=== PATIENT | female | born 1965 | race Caucasian/White ===

== ENCOUNTER 2018-07-22 16:10 | Emergency (ER) | payer BC, OTHER ==
[2018-07-22] MEDS ORDERED: IBUPROFEN 200 MG TAB PO ONE (16:51)
--- NOTE | 2018-07-22 17:20 | EDPHYS ---
Physician Documentation [facility] Name: Kathryn Campuzano Age: 53 yrs Sex: Female : 1965 Arrival Date: 07/22/2018 Time: 16:17 Bed 12 Private MD: ED Physician Los Lobo HPI: 07/22 16:56 This 53 yrs old Female presents to ER via Ambulatory with complaints of Flu viky Symptoms. 16:56 cough. The patient or guardian reports cough. Severity of symptoms: At their worst the viky symptoms were mild, in the emergency department the symptoms are unchanged. Onset: The symptoms/episode began/occurred 3 day(s) ago. Associated signs and symptoms: The patient has no apparent associated signs or symptoms. Severity of symptoms: At their worst the symptoms were mild in the emergency department the symptoms are unchanged. 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 - Social history:: Smoking status: Patient/guardian denies using tobacco. - Ebola Screening: : Patient negative for fever greater than or equal to 101.5 degrees Fahrenheit, and additional compatible Ebola Virus Disease symptoms Patient denies exposure to infectious person Patient denies travel to an Ebola-affected area in the 21 days before illness onset No symptoms or risks identified at this time. - Family history:: not pertinent. ROS: 16:56 Constitutional: Negative for fever, chills, and weight loss, Eyes: Negative for injury, viky pain, redness, and discharge, ENT: Negative for injury, pain, and discharge, Neck: Negative for injury, pain, and swelling, Cardiovascular: Negative for chest pain, palpitations, and edema, Abdomen/GI: Negative for abdominal pain, nausea, vomiting, diarrhea, and constipation, Back: Negative for injury and pain, : Negative for injury, bleeding, discharge, and swelling, MS/Extremity: Negative for injury and deformity, Skin: Negative for injury, rash, and discoloration, Psych: Negative for depression, anxiety, suicide ideation, homicidal ideation, and hallucinations, Allergy/Immunology: Negative for hives, rash, and allergies, Endocrine: Negative for neck swelling, polydipsia, polyuria, polyphagia, and marked weight changes, Hematologic/Lymphatic: Negative for swollen nodes, abnormal bleeding, and unusual bruising. 16:56 Respiratory: Positive for cough. 16:56 Neuro: Positive for headache. Exam: 16:56 Constitutional: This is a well developed, well nourished patient who is awake, alert, viky and in no acute distress. Head/Face: Normocephalic, atraumatic. Eyes: Pupils equal round and reactive to light, extra-ocular motions intact. Lids and lashes normal. Conjunctiva and sclera are non-icteric and not injected. Cornea within normal limits. Periorbital areas with no swelling, redness, or edema. ENT: Nares patent. No nasal discharge, no septal abnormalities noted. Tympanic membranes are normal and external auditory canals are clear. Oropharynx with no redness, swelling, or masses, exudates, or evidence of obstruction, uvula midline. Mucous membranes moist. Neck: Trachea midline, no thyromegaly or masses palpated, and no cervical lymphadenopathy. Supple, full range of motion without nuchal rigidity, or vertebral point tenderness. No Meningismus. Chest/axilla: Normal chest wall appearance and motion. Nontender with no deformity. No lesions are appreciated. Cardiovascular: Regular rate and rhythm with a normal S1 and S2. No gallops, murmurs, or rubs. Normal PMI, no JVD. No pulse deficits. Respiratory: Lungs have equal breath sounds bilaterally, clear to auscultation and percussion. No rales, rhonchi or wheezes noted. No increased work of breathing, no retractions or nasal flaring. Abdomen/GI: Soft, non-tender, with normal bowel sounds. No distension or tympany. No guarding or rebound. No evidence of tenderness throughout. Back: No spinal tenderness. No costovertebral tenderness. Full range of motion. Skin: Warm, dry with normal turgor. Normal color with no rashes, no lesions, and no evidence of cellulitis. MS/ Extremity: Pulses equal, no cyanosis. Neurovascular intact. Full, normal range of motion. Neuro: Awake and alert, GCS 15, oriented to person, place, time, and situation. Cranial nerves II-XII grossly intact. Motor strength 5/5 in all extremities. Sensory grossly intact. Cerebellar exam normal. Normal gait. Psych: Awake, alert, with orientation to person, place and time. Behavior, mood, and affect are within normal limits. 16:56 Neck: ROM/movement: is normal, no acute changes, Meningeal signs: are not present, Kernig's sign is negative, Brudzinski's sign is negative. Vital Signs: 16:30 BP 145 / 90; Pulse 80; Resp 16; Temp 98.6(TE); Pulse Ox 98% on R/A; Weight 63.5 kg; iw Height 5 ft. 3 in. (160.02 cm); Pain 8/10; 16:30 Body Mass Index 24.80 (63.50 kg, 160.02 cm) iw MDM: 16:32 Patient medically screened. [facility] 16:58 Data reviewed: vital signs, nurses notes, lab test result(s), Flu: negative. [facility] 07/22 16:32 Order name: Flu [facility] 07/22 17:01 Order name: Influenza Screen (A EDMI Administered Medications: 16:45 Drug: Motrin 600 mg Route: PO; iw 17:00 Follow up: Response: No adverse reaction iw Disposition: 07/22/18 17:19 Discharged to Home. Impression: Malaise and fatigue. - Condition is Stable. - Discharge Instructions: Weakness, Cough, Adult, [id number], Weakness, [id number], Cough, Adult. - Work release form, Medication Reconciliation Form, Thank You Letter, Antibiotic Education, Prescription Opioid Use form. - Follow up: Private Physician; When: 2 - 3 days; Reason: Recheck today's complaints, Continuance of care, Re-evaluation by your physician. - Problem is new. - Symptoms have improved. Signatures: Dispatcher [employer] EDMI Los Lobo MD MD cha Williams, Irene, RN RN iw Corrections: (The following items were deleted from the chart) 17:36 17:19 07/22/2018 17:19 Discharged to Home. Impression: Malaise and fatigue. Condition iw is Stable. Discharge Instructions: Weakness, Cough, Adult, [id number], Weakness, Adcz-[id number], Cough, Adult. Forms are Medication Reconciliation Form, Thank You Letter, Antibiotic Education, Prescription Opioid Use. Follow up: Private Physician; When: 2 - 3 days; Reason: Recheck today's complaints, Continuance of care, Re-evaluation by your physician. Problem is new. Symptoms have improved. viky
--- NOTE | 2018-07-22 17:20 | ER ---
Nurse's Notes [facility] Name: Kathryn Campuzano Age: 53 yrs Sex: Female : 1965 Arrival Date: 07/22/2018 Time: 16:17 Bed 12 Private MD: Diagnosis: Malaise and fatigue Presentation: 07/22 16:27 Presenting complaint: Patient states: works with someone who had a bad cough, pt iw started sneezing, coughing, headache, can't hear, ears are stopped up, needs a doctor note to return to work, chest hurts, and has back pain from cough, ears are ringing, feels hot and cold, was coughing up green stuff that has resolved today, cough is better today, also has sore throat. Transition of care: patient was not received from another setting of care. Onset of symptoms was July 15, 2018. Risk Assessment: Do you want to hurt yourself or someone else? Patient reports no desire to harm self or others. Initial Sepsis Screen: Does the patient meet any 2 criteria? No. Patient's initial sepsis screen is negative. Does the patient have a suspected source of infection? No. Patient's initial sepsis screen is negative. Care prior to arrival: None. 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 - Social history:: Smoking status: Patient/guardian denies using tobacco. - Ebola Screening: : Patient negative for fever greater than or equal to 101.5 degrees Fahrenheit, and additional compatible Ebola Virus Disease symptoms Patient denies exposure to infectious person Patient denies travel to an Ebola-affected area in the 21 days before illness onset No symptoms or risks identified at this time. - Family history:: not pertinent. Screenin:39 Abuse screen: Denies threats or abuse. Denies injuries from another. Nutritional iw screening: No deficits noted. Tuberculosis screening: No symptoms or risk factors identified. Fall Risk None identified. Assessment: 16:39 General: Appears in no apparent distress. Behavior is calm, cooperative. Pain: iw Complains of pain in head Pain currently is 8 out of 10 on a pain scale. Neuro: Level of Consciousness is awake, alert, obeys commands, Oriented to person, place, time, situation, Moves all extremities. Full function Reports headache. Cardiovascular: Capillary refill < 3 seconds in bilateral fingers Patient's skin is warm and dry. Respiratory: Respiratory effort is even, unlabored, Respiratory pattern is regular, symmetrical. Derm: Skin is intact, is healthy with good turgor. Musculoskeletal: Range of motion: intact in all extremities. Vital Signs: 16:30 BP 145 / 90; Pulse 80; Resp 16; Temp 98.6(TE); Pulse Ox 98% on R/A; Weight 63.5 kg; iw Height 5 ft. 3 in. (160.02 cm); Pain 8/10; 16:30 Body Mass Index 24.80 (63.50 kg, 160.02 cm) iw ED Course: 16:17 Patient arrived in ED. rg4 16:29 Triage completed. iw 16:30 Arm band placed on. iw 16:31 Sara Hernandez, RN is Primary Nurse. iw 16:32 Los Lobo MD is Attending Physician. [facility] 16:40 Patient has correct armband on for positive identification. iw 17:35 No provider procedures requiring assistance completed. Patient did not have IV access iw during this emergency room visit. Administered Medications: 16:45 Drug: Motrin 600 mg Route: PO; iw 17:00 Follow up: Response: No adverse reaction iw Outcome: 17:19 Discharge ordered by . [facility] 17:35 Discharged to home ambulatory. iw 17:35 Condition: good 17:35 Discharge instructions given to patient, Instructed on discharge instructions, follow up and referral plans. Demonstrated understanding of instructions, follow-up care. 17:36 Patient left the ED. iw Signatures: Los Lobo MD MD cha Williams, Irene, RN RN Cheryl Maldonado [id number]
[2018-07-22 19:25] VITALS: BP 145/90; TEMP 98.6; O2SAT 98
== END 2018-07-22 17:36 | disposition home or self-care (01) ==
LOC: ER 16:10
DX: R53.81 Other malaise (principal); R53.83 Other fatigue
CPT/HCPCS: 87804; 99283